=== PATIENT | female | born 2000 | race African-American/Black ===

== ENCOUNTER 2023-09-14 18:50 | Emergency (ER) | payer SELFPAY ==
[2023-09-14 19:05] VITALS: BP 99/61; PULSE 66; RESP 20; TEMP 98; BMI 18.8
[2023-09-14] MEDS ORDERED: predniSONE 20 MG TABLET (UD) PO ONE (19:41)
[2023-09-14] MEDS: FAMOTIDINE 10 MG TABLET PO ONE (20:22)
[2023-09-14] MEDS: diphenhydrAMINE HCL 25 MG CAPSULE (FP) PO ONE (20:22)
== END 2023-09-14 20:29 | disposition home or self-care (01) ==
LOC: JER 18:50
DX: R21 Rash and other nonspecific skin eruption (principal); L29.9 Pruritus, unspecified; L50.9 Urticaria, unspecified
CPT/HCPCS: 99283-25